=== PATIENT | female | born 1965 | race Caucasian/White ===

== ENCOUNTER 2021-06-12 12:34 | Emergency (ER) | payer OTHER ==
[2021-06-12 13:08] VITALS: BP 132/89; PULSE 66; TEMP 97.8; BMI 36.3
[2021-06-12] MEDS ORDERED: KETOROLAC TROMETHAMINE 30 MG/1 ML VIAL ONE (13:54)
[2021-06-12] MEDS ORDERED: KETOROLAC TROMETHAMINE 30 MG/1 ML VIAL IM ONE (13:54)
== END 2021-06-12 14:05 | disposition home or self-care (01) ==
LOC: JER 12:34
PROC: 3E0233Z Introduction of Anti-inflammatory into Muscle, Percutaneous Approach (ICD-10-PCS; principal; 2021-06-12)
DX: M62.838 Other muscle spasm (principal); M54.5 Low back pain
CPT/HCPCS: 99284-25